=== PATIENT | female | born 1965 | race Caucasian/White ===

== ENCOUNTER → 2020-10-31 | Outpatient (CLI) | payer BC, OTHER ==
--- NOTE | 2020-10-31 11:13 | CT ---
EXAMINATION TYPE: CT angio chest DATE OF EXAM: 10/31/2020 10:53 AM COMPARISON: Outside chest x-ray earlier today HISTORY: Shortness of breath upon exertion CT DLP: 130.7 mGycm Automated exposure control for dose reduction was used. CONTRAST: CTA scan of the thorax is performed with IV Contrast, patient injected with 100, wasted 24 mL of Isov ue 370, pulmonary embolism protocol. MIP images are created and reviewed. FINDINGS: LUNGS: Dependent atelectasis bilateral lower lobes. No suspicious focal consolidation or groundglass opacity. No pleural effusion or pneumothorax seen bilaterally. No suspicious nodules or masses. MEDIASTINUM: There is suboptimal bolus with most dense contrast in the SVC. There is some heterogene ity in the pulmonary artery and branches but no convincing CT evidence for acute pulmonary embolism . There is however ascending aortic aneurysm up to 4.4 cm in the root sagittal image 83 and 4.2 cm in the ascending aorta. There is bovine type arch along with direct origin left vertebral artery from th e arch. There are no greater than 1 cm hilar or mediastinal lymph nodes. No cardiomegaly or pericar dial effusion is seen. OTHER: Surgical changes to the left breast deep aspect coronal image 32. Slight underlying scoliotic curvature. IMPRESSION: Suboptimal study without CT evidence for acute pulmonary embolism. No suspicious acute pu lmonary process. Ascending aortic aneurysm up to 4.4 cm at the aortic root noted.
== END | disposition home or self-care (01) ==
LOC: RADCTMAIN 10:02
PROVIDERS: ATTEND Internal Medicine
DX: I71.2 Thoracic aortic aneurysm, without rupture (principal); R06.02 Shortness of breath
CPT/HCPCS: 71275; Q9967